=== PATIENT | female | born 1945 | race Caucasian/White ===

== ENCOUNTER 2016-07-03 16:44 | Emergency (ER) | payer MEDICARE, OTHER ==
[~2016-07-03] VITALS: Wt 78.0 kg
[~2016-07-03 16:44] MED LIST: AZIT250T6 PO; CHLO25TA13 PO; CIPR500T4 PO; HYDR-3011 PO; HYDR-902 PO; LOSA100T7 PO; SIMV20TA PO
[2016-07-03] MEDS ORDERED: ASPIRIN 81 MG TAB PO STA (20:49)
--- NOTE | 2016-07-03 21:28 | RADRPT ---
PROCEDURE: CT head without Contrast CLINICAL INDICATION: Poorly hypo and pressure rule out intracranial bleed TECHNIQUE: Transaxial images were made through the head on a multi-slice scanner without intraveno us contrast. Coronal and sagittal images were subsequently reformatted. One or more of the following dose reduction techniques were used: - Automated exposure control. - Adjustment of the mA and/or kV according to patient size. - Use of iterative reconstruction technique. Radiation dose: CTDIvol = 51.08 mGy; DLP = 817.78 mGy-cm. COMPARISON: None FINDINGS: The calvarium appears intact. The mastoid air cells and paranasal sinuses are well-aerated.. The ventricles are normal in size and there is no midline shift. No intracranial bleed, mass, or extra-axial fluid collection is identified. Idiopathic calcification is seen in the basal ganglia bilaterally, a normal variant. There is good starr-white matter differentiation. IMPRESSION: Unremarkable noncontrast enhanced CT scan of the head with no intracranial bleed identif ied. Physician Pedrito Date Time Electronically viewed and signed by Physician Pedrito on 07/03/2016 21:28 /
[2016-07-03 21:48] LABS: ADD SCAN DIFF NO
--- NOTE | 2016-07-03 21:49 | RADRPT ---
PROCEDURE: XR Chest. CLINICAL INDICATION: Chest pain. TECHNIQUE: Portable AP upright view of the chest was obtained. COMPARISON: None. FINDINGS: The cardiomediastinal silhouette is within upper normal limits. The lungs are clear. There is no e vidence for pleural effusion, pneumothorax or pulmonary vascular congestion. The osseous structures are intact with no evidence for acute abnormality. RPTAT:HJJR IMPRESSION: No evidence for acute intrathoracic pathology. Physician Odell Date Time Electronically viewed and signed by Physician Odell on 07/03/2016 21:49 JR/
[2016-07-03 21:50] LABS: BASOPHILS % 0.4 % (0.0-2.0); EOSINOPHILS # 0.1 10^3/ul (0.0-0.5); EOSINOPHILS % 1.3 % (0.0-7.0); HEMOGLOBIN 12.3 g/dl (12.0-16.0); LYMPHOCYTES % 29.1 % (15.0-51.0); MEAN CORPUSCULAR HEMOGLOBIN 29.9 pg (29.0-33.0); MEAN CORPUSCULAR HGB CONC 33.2 g/dl (32.0-37.0); MEAN CORPUSCULAR VOLUME 89.8 fl (82.0-101.0); MEAN PLATELET VOLUME 10.6 fl (7.4-10.4); MONOCYTE # 0.4 10^3/ul (0.3-0.9); MONOCYTES % 6.4 % (0.0-11.0); NEUTROPHIL # 4.3 10^3/ul (1.6-7.5); NEUTROPHILS % 62.5 % (39.0-77.0); PLATELET COUNT 296 10^3/UL (140-415); RED BLOOD COUNT 4.12 10^6/ul (4.20-5.40); RED CELL DISTRIBUTION WIDTH 12.9 % (11.5-14.5); WHITE BLOOD COUNT 6.9 10^3/ul (4.8-10.8)
[2016-07-03 22:06] LABS: ALBUMIN 4.1 g/dl (3.3-4.9); CHLORIDE 104 mmol/L (97-110); SODIUM 142 mmol/L (135-144)
[2016-07-03 22:07] LABS: POTASSIUM 3.8 mmol/L (3.5-5.1)
[2016-07-03 22:08] LABS: CREATININE 1.19 mg/dl (0.44-1.00)
[2016-07-03 22:09] LABS: ALANINE AMINOTRANSFERASE 20 IU/L (13-69); ALKALINE PHOSPHATASE 96 IU/L (42-121); ANION GAP 15 (8-16); ASPARTATE AMINO TRANSFERASE 16 IU/L (15-46); BLOOD UREA NITROGEN 19 mg/dl (7-20); CALCIUM 9.4 mg/dl (8.4-10.2); CARBON DIOXIDE 27 mmol/L (21-31); GLUCOSE 99 mg/dl (70-220); TOTAL PROTEIN 7.5 g/dl (6.1-8.1)
[2016-07-03 22:11] LABS: INR 0.97; PARTIAL THROMBOPLASTIN TIME 30.1 Sec (25.0-35.0); PROTIME 12.9 Sec (12.2-14.2)
[2016-07-03 22:30] LABS: TROPONIN-I < 0.012 ng/ml (0.00-0.12)
[2016-07-03] MEDS ORDERED: AMLO5TAB4 PO (22:47)
[2016-07-03 23:02] VITALS: BP 172/65; PULSE 61; RESP 18
--- NOTE | 2016-07-03 23:41 | ERD ---
ER Documentation Chief Complaint Date/Time DATE: 07/03/16 TIME: 23:37 Chief Complaint NAVAS WITH N/V. FOR 4 DAYS. HIGH BP. NO NEURO DEF. SPEECH CLEAR. HPI 71-year-old female with a history of hypertension on losartan presenting with uncontrolled hypertension for the past 3-4 days. She has had mild occipital headaches as well. She had one episode of nausea without vomiting. She complains of occasional blurry vision and right shoulder and arm heaviness. No significant chest pain, focal weakness or numbness, shortness of breath, dizziness or difficulty speaking. ROS All systems reviewed and are negative except as per history of present illness. Medications Home Meds Active Scripts Amlodipine Besylate* (Norvasc*) 5 Mg Tablet, 5 MG PO DAILY, #30 TAB Prov:NAIDA ANNA MD 07/03/16 Reported Medications Hydroxyzine Hcl* (Hydroxyzine Hcl*) 25 Mg Tablet, 25 MG PO BID Y for ITCHING, # 30 TAB 03/21/16 Losartan Potassium* (Losartan Potassium*) 100 Mg Tablet, 100 MG PO DAILY, TAB 03/21/16 Chlorthalidone* (Chlorthalidone*) 25 Mg Tablet, 12.5 MG PO DAILY, TAB 03/21/16 Discontinued Reported Medications Azithromycin* (Azithromycin*) 250 Mg Tablet, 250 MG PO DAILY, #4 TAB PER PT STARTED ON 03-19-16 03/21/16 Simvastatin* (Zocor*) 20 Mg Tablet, 20 MG PO QHS, #30 TAB 03/21/16 Discontinued Scripts Hydrocodone/Acetaminophen (Bynum 10-325 Tablet) 1 Each Tablet, 1 TAB PO Q6H Y for PAIN, #14 TAB Prov:MICHEL HI DO 03/21/16 Ciprofloxacin Hcl* (Ciprofloxacin Hcl*) 500 Mg Tablet, 500 MG PO BID for 7 Days , TAB Prov:SANJUANA HISTJARRODS A. DO 03/21/16 Allergies Allergies: Coded Allergies: No Known Allergy (Unverified , 07/03/16) PMhx/Soc History of Surgery: Yes (APPENDECTOMY, right knee, shoulder, ovaries) Anesthesia Reaction: No Hx Neurological Disorder: Yes Hx Respiratory Disorders: No Hx Cardiac Disorders: Yes (HTN,HIGH CHOLESTEROL) Hx Psychiatric Problems: No Hx Miscellaneous Medical Probl: No Hx Alcohol Use: No Hx Substance Use: No Hx Tobacco Use: No Smoking Status: Never smoker FmHx Family History: No diabetes Physical Exam Vitals Vital Signs Date Time Temp Pulse Resp B/P Pulse Ox O2 Delivery O2 Flow Rate FiO2 07/03/16 23:02 61 18 172/65 98 Room Air 07/03/16 22:29 55 10 172/65 98 Room Air 07/03/16 21:34 61 15 175/77 100 Room Air 07/03/16 20:01 236/102 07/03/16 17:01 98.6 69 20 214/89 100 Physical Exam Const: Well-appearing, nontoxic, no distress Head: Atraumatic Eyes: Normal Conjunctiva ENT: Normal External Ears, Nose and Mouth. Neck: Full range of motion.No meningismus. Resp: Clear to auscultation bilaterally Cardio: Regular rate and rhythm, no murmurs Abd: Soft, non tender, non distended. Normal bowel sounds Skin: No petechiae or rashes Back: No midline or flank tenderness Ext: No cyanosis, or edema Neuro: M/S: Alert and oriented 3 Face: EOMI, face and pharynx with normal sensation and function Motor: Normal strength throughout Sensation: Normal sensation throughout Speech: Normal Cerebel: Normal coordination Normal gait Normal finger to nose Psych: Normal Mood and Affect Result Diagram: 07/03/16212107/03/162121 Results 24 hrs Laboratory Tests Test 07/03/16 21:22 Activated Partial Thromboplast Time 30.1Sec Alanine Aminotransferase (ALT/SGPT) 20IU/L Albumin 4.1g/dl Albumin/Globulin Ratio 1.20 Alkaline Phosphatase 96IU/L Anion Gap 15 Aspartate Amino Transf (AST/SGOT) 16IU/L Basophils # 0.010^3/ul Basophils % 0.4% Blood Urea Nitrogen 19mg/dl Calcium Level 9.4mg/dl Carbon Dioxide Level 27mmol/L Chloride Level 104mmol/L Creatinine 1.19mg/dl Direct Bilirubin 0.00mg/dl Eosinophils # 0.110^3/ul Eosinophils % 1.3% Globulin 3.40g/dl Glucose Level 99mg/dl Hematocrit 37.0% Hemoglobin 12.3g/dl INR International Normalized Ratio 0.97 Indirect Bilirubin 0.0mg/dl Lymphocytes # 2.010^3/ul Lymphocytes % 29.1% Mean Corpuscular Hemoglobin 29.9pg Mean Corpuscular Hemoglobin Concent 33.2g/dl Mean Corpuscular Volume 89.8fl Mean Platelet Volume 10.6fl Monocytes # 0.410^3/ul Monocytes % 6.4% Neutrophils # 4.310^3/ul Neutrophils % 62.5% Nucleated Red Blood Cells # 0.010^3/ul Nucleated Red Blood Cells % 0.0/100WBC Platelet Count 29137^3/UL Potassium Level 3.8mmol/L Prothrombin Time 12.9Sec Prothrombin Time Ratio 1.0 Red Blood Count 4.1210^6/ul Red Cell Distribution Width 12.9% Sodium Level 142mmol/L Total Bilirubin 0.0mg/dl Total Protein 7.5g/dl Troponin I < 0.012ng/ml White Blood Count 6.910^3/ul Current Medications Medications (Trade) Dose Ordered Sig/Helder Route PRN Reason Start Time Stop Time Status Last Admin Dose Admin Aspirin (Aspirin) 162 mg ONCE STAT PO 07/03/16 20:49 07/03/16 20:51 DC 07/03/16 21:34 Procedures/MDM EKG: Rate/Rhythm: Sinus bradycardia QRS, ST, T-waves: No changes consistent w/ acute ischemia Impression: No evidence of ischemia or arrhythmia Patient is presenting with uncontrolled hypertension. Patient's blood pressure was elevated (>120/80) but appears stable without evidence of hypertension emergency or urgency. Initially the patient's blood pressure was systolic over 220, however this decreased without any intervention. Her workup today does not show evidence of endorgan injury. CT scan of the brain did not show evidence of acute intracranial hemorrhage or stroke. I do not suspect aortic dissection. the patient was counseled about the risks of hypertension and urged to pursue outpatient monitoring and therapy within a week with their primary care physician. In the meantime I will start her on Norvasc daily. Return precautions were discussed at length. Patient was hemodynamically stable upon discharge. Departure Diagnosis: Primary Impression: Uncontrolled hypertension Additional Impression: Headache Condition: Stable Patient Instructions: High Blood Pressure (Hypertension) Additional Instructions: Consulte a cox mdico antes de 1 semana. Regrese por cualquier empeoramiento de los sntomas. NAIDA ANNA MD Jul 03, 2016 23:41
== END 2016-07-03 23:02 | disposition home or self-care (01) ==
LOC: E/R 16:44
DX: I10 Essential (primary) hypertension (principal); R07.9 Chest pain, unspecified
CPT/HCPCS: 36415; 70450; 71010; 80053; 84484; 85025; 85610; 85730; 93005

== ENCOUNTER 2017-11-04 23:56 | Observation (INO) | END 2017-11-06 14:47 | disposition home or self-care (01) ==

== ENCOUNTER 2017-12-01 14:37 | Emergency (ER) | END 2017-12-01 22:37 | disposition home or self-care (01) ==